=== PATIENT | female | born 1955 | race Caucasian/White ===

== ENCOUNTER 2021-07-19 11:09 | Emergency (ER) | payer MEDICARE ==
[2021-07-19 11:41] LABS: #Eosinphils 0.1 thou/uL (0.0-0.7); #Lymphocytes 1.7 thou/uL (1.20-3.40); #Monocytes 0.8 thou/uL (0.11-0.59); #Neutrophils 11.6 thou/uL (1.40-6.50); %Basophils 0.3 % (0.0-1.0); %Eosinophils 0.8 % (0.0-10.0); %Lymphocytes 12.1 % (21.0-51.0); %Monocytes 5.3 % (0.0-10.0); %Neutrophils 81.5 % (42.0-75.0); Hemoglobin 15.4 g/dL (12.0-16.0); Mean Corpuscular HGB CONC 34.1 g/dL (32.0-36.0); Mean Corpuscular Hemoglobin 32.1 pg (27.0-31.0); Mean Platelet Volume 7.5 fL (7.4-10.4); Platelet Count 418 thou/uL (130-400); RBC Distribution Width 12.4 % (11.5-14.5); Red Blood Cell (RBC) Count 4.82 mill/uL (4.20-5.40); White Blood Cell (WBC) Count 14.2 thou/uL (4.8-10.8)
[2021-07-19 12:04] LABS: ALT (SGPT) 17 U/L (8-55); AST (SGOT) 16 U/L (5-34); Albumin 4.2 g/dL (3.4-4.8); Alkaline Phosphatase 93 U/L (40-110); Anion Gap 16 mmol/L (10-20); BUN (Urea Nitrogen) 13 mg/dL (9.8-20.1); Bilirubin, Total 0.6 mg/dL (0.2-1.2); CK (CPK) 42 U/L (29-168); Calc. Creatinine Clearance 0 mL/min (70-130); Calcium 9.7 mg/dL (7.8-10.44); Carbon Dioxide 27 mmol/L (23-31); Chloride 99 mmol/L (98-107); Globulin 3.1 g/dL (2.4-3.5); Glucose 142 mg/dL (80-115); Lipase 11 U/L (8-78); Potassium 3.8 mmol/L (3.5-5.1); Protein, Total 7.3 g/dL (5.8-8.1); Sodium 138 mmol/L (136-145)
[2021-07-19] MEDS ORDERED: Fentanyl 100 MCG/2 ML VIAL ONE (12:13)
[2021-07-19] MEDS ORDERED: Lorazepam 2 MG/ML VIAL ONE (12:13)
[2021-07-19] MEDS ORDERED: diphenhydrAMINE 50 MG/ML VIAL ONE (14:04)
[2021-07-19] MEDS ORDERED: methylPREDNISolone Sod Succ 40 MG VIAL ONE (14:04)
[2021-07-19] MEDS ORDERED: Famotidine/PF 20 mg/2ml Vial ONE (14:04)
== END 2021-07-19 17:28 | disposition home or self-care (01) ==
LOC: ERS 11:09
DX: M25.511 Pain in right shoulder (principal); R79.1 Abnormal coagulation profile; E11.9 Type 2 diabetes mellitus without complications; I10 Essential (primary) hypertension; E78.5 Hyperlipidemia, unspecified; Z79.84 Long term (current) use of oral hypoglycemic drugs; Z79.899 Other long term (current) drug therapy
CPT/HCPCS: 36415; 71275; 80053; 82550; 83690; 84484; 85025; 85379; 93005; 96374; 96375; J1200; J2060; J2920; J3010; S0028

== ENCOUNTER 2023-01-05 13:25 | Outpatient (CLI) | payer MEDICARE | END 2023-01-05 13:26 | disposition home or self-care (01) | LOC: SCSMRI 13:25 | PROVIDERS: ATTEND Orthopaedic Surgery | DX: D17.21 Benign lipomatous neoplasm of skin and subcutaneous tissue of right arm (principal); M89.8X2 Other specified disorders of bone, upper arm ==

== ENCOUNTER 2024-02-15 13:22 | Outpatient (CLI) | payer MEDICARE | END 2024-02-15 13:23 | disposition home or self-care (01) | LOC: SCSMRI 13:22 | PROVIDERS: ATTEND Orthopaedic Surgery | DX: M54.16 Radiculopathy, lumbar region (principal) | CPT/HCPCS: 72148 ==